=== PATIENT | female | born 1970 | race Caucasian/White ===

== ENCOUNTER 2019-01-28 17:14 | Observation (INO) ==
--- NOTE | 2019-01-28 17:41 | Emergency Department Note ---
Disposition Clinical Impression: Chronic anemia Chest pain Qualifiers: Chest pain type: unspecified Qualified Code(s): R07.9 - Chest pain, unspecified Disposition: Admitted As Inpatient Condition: Good Time of Disposition: 20:20 General Adult HPI - General Stated complaint: chest pain Time Seen by Provider: 01/28/19 17:19 Source: patient Limitations: no limitations Nursing Notes Reviewed: Yes Vital Signs Reviewed: Yes - History of Present Illness HPI Narrative: Female patient with a history of depression and PTSD [facility] complaining of chest pain. She is a smoker. Has a significant family history of cardiac disease with her daughter having heart attack at 28. She reports that she has been anxious for the past 4-5 months. Did stop her antidepressants around that time as well. Has been under an increased level of stress. Is currently on Avinza twice a day for anxiety. Does not wish to go back on her antidepressants. Stating that is when she woke up in pain attack. Subsequently developed some left-sided chest pain. Discredited as a weight on her chest. Denies any shortness of breath. Is tearful on exam. She does have some pain to light palpation of her left chest wall at this time. She denies history of hypertension or hyperlipidemia. Has not tried anything to make the pain better. Patient was recently admitted for a UTI at [facility]. She was discharged and did not finish her antibiotics and she ended up presenting back here for a UTI as well. She reports that she did finish her antibiotics this time and denies any hematuria or hematochezia or melena or dysuria. Pain Scale: 5 - Related Data Home Medications Medication Instructions Recorded Confirmed Alprazolam [Xanax] 2 mg PO BID PRN 01/08/19 01/29/19 Previous Rx's Medication Instructions Recorded Promethazine [Phenergan] 25 mg PO Q6HR PRN #10 tablet 01/09/19 Ferrous Sulfate 650 mg PO DAILY@0800 #30 tablet 01/29/19 Allergies Allergy/AdvReac Type Severity Reaction Status Date / Time meperidine [From Demerol] Allergy Mild Unconscious Verified 01/29/19 09:45 All systems ED: reviewed and negative except as stated. Review of Systems: As Per HPI Constitutional: Denies: fever, chills Cardiovascular: Reports: chest pain, palpitations. Denies: syncope Respiratory: Denies: cough, dyspnea Gastrointestinal: Denies: abdominal pain, nausea, vomiting, diarrhea Genitourinary: Denies: urgency, dysuria, frequency, hematuria Musculoskeletal: Denies: back pain Psychiatric: Reports: anxiety, depression Past Medical History - Past Medical History Attestation: Yes The following information was validated with the patient. 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 - Social History Smoking Status: Current every day smoker Smokeless Tobacco Status: No Alcohol use: Reports: none Drug use: Reports: none Physical Exam - General Limitations: no limitations General appearance: alert, in distress (Anxious and tearful) - Head Head exam: atraumatic, normocephalic, normal inspection - Eye Eye exam: Present: normal appearance, PERRL, EOMI - ENT ENT exam: normal exam, normal oropharynx, mucous membranes moist - Neck Neck exam: Present: normal inspection, full ROM, trachea midline - Chest Chest inspection: Present: symmetric chest wall rise, tenderness - Respiratory Respiratory exam: Present: normal lung sounds bilaterally. Absent: respiratory distress - Cardiovascular Cardiovascular exam: Present: regular rate, normal rhythm, normal heart sounds - Abdominal Exam Abdominal exam: Present: soft, Non-Tender. Absent: tenderness, distention, guarding, rebound, rigidity, organomegaly - Extremities Exam Extremities exam: Present: normal inspection, full ROM, normal capillary refill. Absent: tenderness, pedal edema, calf tenderness - Neurological Exam Neurological exam: Present: alert, oriented X3 - Psychiatric Psychiatric exam: Present: anxious - Skin Skin exam: Present: warm, dry, intact, normal color Course Course Narrative: Patient with left-sided chest pain. Does appear anxious. Has recently stopped her antidepressants. Is a smoker. With a significant cardiac history in her family. No signs of acute ischemia on EKG. Troponin is negative. Bedside shared decision-making reveals the patient is extremely anxious about her chest pain is concerned because of her extensive family history. She elects to be admitted to the hospital for further cardiac evaluation and serial troponins. I feel this is reasonable. We will admit patient at this time. Vital Signs Temperature 97.9 F 01/28/19 17:28 Pulse Rate 93 01/28/19 17:28 Respiratory Rate 18 01/28/19 17:28 Blood Pressure 140/89 01/28/19 17:28 O2 Sat by Pulse Oximetry 100 01/28/19 17:28 Temperature 97.9 F 01/28/19 17:28 Pulse Rate 93 01/28/19 17:28 Respiratory Rate 18 01/28/19 17:28 Blood Pressure 140/89 01/28/19 17:28 O2 Sat by Pulse Oximetry 100 01/28/19 17:28 Oxygen Delivery Oxygen Delivery Room Air Medical Decision Making - Medical Records Medical records reviewed: Yes I reviewed the patient's medical records. - Lab Data Lab results reviewed: Yes I reviewed the patient's lab results. Result diagrams: 01/28/19 17:27 01/29/19 04:47 Lab Results 01/28/19 01/28/19 01/28/19 Range/Units 17:27 17:27 17:27 WBC 10.9 (4.3-11.1) K/mcL RBC 4.42 (3.82-4.97) M/mcL Hgb 10.6 L (11.5-15.4) g/dL Hct 33.4 L (35.3-44.9) % MCV 75.6 L (83.0-100.0) fL MCH 24.0 L (28.0-33.3) pg MCHC 31.7 (31.6-35.5) g/dL RDW 16.9 H (11.5-14.5) % Plt Count 442 H (140-400) K/mcL MPV 10.0 (9.4-12.4) fL Immature Gran % 0.4 (0-4) % Seg Neutrophils % 75.0 % Lymphocytes % 18.2 % Monocytes % 4.9 % Eosinophils % 1.0 % Basophils % 0.5 % Neutrophils # 8.2 (1.6-8.9) K/mcL Lymphocytes # 2.0 (0.6-4.6) K/mcL Monocytes # 0.5 (0.0-1.3) K/mcL Eosinophils # 0.1 (0.0-0.6) K/mcL Basophils # 0.1 (0.0-0.2) K/mcL Sodium 134 L (136-145) mEq/L Potassium 3.8 (3.5-5.1) mEq/L Chloride 96 L (98-107) mEq/L Carbon Dioxide 29 (23-29) mEq/L BUN 4 L (6-20) mg/dL Creatinine 0.69 (0.60-1.20) mg/dL Est GFR ( Amer) > 60 (> 60) Est GFR (Non-Af Amer) > 60 (> 60) BUN/Creatinine Ratio 6 (6-26) Glucose 98 (70-105) mg/dL Calculated Osmolality 275 L (280-300) Calcium 10.2 (8.6-10.3) mg/dL Total Bilirubin 0.3 (0.3-1.0) mg/dL Direct Bilirubin 0.1 (0.0-0.2) mg/dL Indirect Bilirubin 0.2 (0.0-1.2) mg/dL AST 12 L (13-39) Units/L ALT 6 L (7-52) Units/L Alkaline Phosphatase 95 (34-104) Units/L Troponin I < 0.03 (< 0.04) ng/mL Serum Total Protein 7.3 (6.4-8.9) g/dL Albumin 4.3 (3.5-5.7) g/dL Globulin 3.0 (2.4-3.5) g/dL Albumin/Globulin Ratio 1.4 (1.1-2.2) Urine Color (Yellow) Urine Clarity (Clear) Urine pH (5.0-8.0) pH Units Ur Specific [place] (1.010-1.025) Urine Protein (Neg-Trace) mg/dL Urine Glucose (UA) (Normal) mg/dL Urine Ketones (Negative) mg/dL Urine Blood (Negative) Urine Nitrite (Negative) Urine Bilirubin (Negative) Urine Urobilinogen (Normal) mg/dL Ur Leukocyte Esterase (Negative) Ur Culture Indicated? (NO) 01/28/19 Range/Units 19:18 WBC (4.3-11.1) K/mcL RBC (3.82-4.97) M/mcL Hgb (11.5-15.4) g/dL Hct (35.3-44.9) % MCV (83.0-100.0) fL MCH (28.0-33.3) pg MCHC (31.6-35.5) g/dL RDW (11.5-14.5) % Plt Count (140-400) K/mcL MPV (9.4-12.4) fL Immature Gran % (0-4) % Seg Neutrophils % % Lymphocytes % % Monocytes % % Eosinophils % % Basophils % % Neutrophils # (1.6-8.9) K/mcL Lymphocytes # (0.6-4.6) K/mcL Monocytes # (0.0-1.3) K/mcL Eosinophils # (0.0-0.6) K/mcL Basophils # (0.0-0.2) K/mcL Sodium (136-145) mEq/L Potassium (3.5-5.1) mEq/L Chloride (98-107) mEq/L Carbon Dioxide (23-29) mEq/L BUN (6-20) mg/dL Creatinine (0.60-1.20) mg/dL Est GFR ( Amer) (> 60) Est GFR (Non-Af Amer) (> 60) BUN/Creatinine Ratio (6-26) Glucose (70-105) mg/dL Calculated Osmolality (280-300) Calcium (8.6-10.3) mg/dL Total Bilirubin (0.3-1.0) mg/dL Direct Bilirubin (0.0-0.2) mg/dL Indirect Bilirubin (0.0-1.2) mg/dL AST (13-39) Units/L ALT (7-52) Units/L Alkaline Phosphatase (34-104) Units/L Troponin I (< 0.04) ng/mL Serum Total Protein (6.4-8.9) g/dL Albumin (3.5-5.7) g/dL Globulin (2.4-3.5) g/dL Albumin/Globulin Ratio (1.1-2.2) Urine Color Yellow (Yellow) Urine Clarity Clear (Clear) Urine pH 6.5 (5.0-8.0) pH Units Ur Specific [place] 1.014 (1.010-1.025) Urine Protein Negative (Neg-Trace) mg/dL Urine Glucose (UA) Normal (Normal) mg/dL Urine Ketones Negative (Negative) mg/dL Urine Blood Negative (Negative) Urine Nitrite Negative (Negative) Urine Bilirubin Negative (Negative) Urine Urobilinogen Normal (Normal) mg/dL Ur Leukocyte Esterase Negative (Negative) Ur Culture Indicated? NO (NO) - Radiology Data Radiology results reviewed: Yes I reviewed the patient's radiology results. Chest X-Ray 01/28/19 17:42 IMPRESSION: No acute findings. D/ / 01/28/2019 18:28:32 Jaciel Joy MD / erick Interpreting Provider: Jaciel Joy MD - EKG Data EKG #1 EKG attestation: Yes I reviewed and interpreted this EKG. EKG results narrative: Normal sinus rhythm at a rate of 93. NV interval is 105. QRS duration is 81. QT is 354. QTC is 441. No signs of acute ischemia. Good R-wave progression. No signs of the BP to be reported got up. No significant change from previous EKG dated 01/07/2019. Attestation Statement - Attestation Attestation: I, Daniel Larios, examined this patient and my medical decision-making was reviewed with the RADIOLOGY PHYSICIAN/PA/Advanced Practice Nurse/Resident Physician. I agree with the documented findings, disposition and treatment plan as described except to the extent set forth below. 48-year-old female brought to emergency department for further evaluation of acute onset chest pain. Patient states has been intermittent throughout the day. Patient reports a significant family history of cardiac disease. Denies hypertension, hyperlipidemia, tobacco abuse. Patient states she woke up with the pain. Its on the left side of the chest and does not radiate. Initial troponin negative. EKG did not show evidence of STEMI. I reviewed the EKG with the resident and agree with the interpretation. Chest x-ray did not show evidence of acute infiltrate or pneumothorax. Patient will be admitted to the hospitalist for further care and evaluation Heart Score - Score EKG: Normal Age: 45-65 Risk Factors: 1-2 risk factors
[2019-01-28 17:55] LABS: Basophils # 0.1 K/mcL (0.0-0.2); Basophils % 0.5 %; Eosinophils # 0.1 K/mcL (0.0-0.6); Hematocrit 33.4 % (35.3-44.9); Hemoglobin 10.6 g/dL (11.5-15.4); Immature Granulocytes % 0.4 % (0-4); Lymphocytes % 18.2 %; Mean Corpuscular HGB Conc 31.7 g/dL (31.6-35.5); Mean Corpuscular Volume 75.6 fL (83.0-100.0); Monocytes # 0.5 K/mcL (0.0-1.3); Monocytes % 4.9 %; Neutrophils # 8.2 K/mcL (1.6-8.9); Platelet Count 442 K/mcL (140-400); Red Blood Count 4.42 M/mcL (3.82-4.97); Red Cell Distribution Width 16.9 % (11.5-14.5); White Blood Count 10.9 K/mcL (4.3-11.1)
[2019-01-28 18:12] LABS: Albumin 4.3 g/dL (3.5-5.7); Albumin/Globulin Ratio 1.4 (1.1-2.2); Bilirubin,Direct 0.1 mg/dL (0.0-0.2); Bilirubin,Indirect 0.2 mg/dL (0.0-1.2); Bilirubin,Total 0.3 mg/dL (0.3-1.0); Total Protein 7.3 g/dL (6.4-8.9)
[2019-01-28 18:14] LABS: BUN/Creatinine Ratio 6 (6-26); Blood Urea Nitrogen 4 mg/dL (6-20); Calcium 10.2 mg/dL (8.6-10.3); Carbon Dioxide 29 mEq/L (23-29); Chloride 96 mEq/L (98-107); Glucose 98 mg/dL (70-105); Osmolality,Calculated 275 (280-300); Potassium 3.8 mEq/L (3.5-5.1); Sodium 134 mEq/L (136-145); Troponin I < 0.03 ng/mL (< 0.04); eGFR For African Americans > 60 (> 60); eGFR For Non-African Americans > 60 (> 60)
[2019-01-28 20:11] LABS: Bilirubin,Urine Negative (Negative); Blood,Urine Negative (Negative); Clarity,Urine Clear (Clear); Color,Urine Yellow (Yellow); Glucose,Urine (UA) Normal (Normal); Ketones,Urine Negative (Negative); Leukocyte Esterase,Urine Negative (Negative); Nitrite,Urine Negative (Negative); PH,Urine 6.5 pH Units (5.0-8.0); Protein,Urine Negative (Neg-Trace); Specific Gravity,Urine 1.014 (1.010-1.025); Urobilinogen,Urine Normal (Normal)
[2019-01-28] MEDS ORDERED: Aspirin 325 MG TABLET PO ONE (20:17)
[2019-01-28] MEDS: Nitroglycerin 0.4 MG TAB.SUBL SL SCH ×2 (20:31→20:56)
[2019-01-28] MEDS ORDERED: 0.9 % Sodium Chloride 1,000 ML IVC SCH (21:00)
--- NOTE | 2019-01-28 21:22 | Internal Med History&Physical ---
Date of Encounter: 01/28/19 Time of Encounter: 21:21 Internal Medicine - H&P: HPI Chief complaint: Chest pain Admitted From: Home Plans for Post Hospital Care: Home History of present illness: Thalia Pugh is a 48-year-old woman with a history of anxiety disorder/panic attacks and a family history remarkable for myocardial infarction in her daughter at the age of 28 and her father at the age of 44 that was fatal presenting to the ER complaining of chest pain/pressure/tightness that started this morning and progressively worsened accompanied by mild dyspnea. While she admits she has been under stress for her daughters current medical conditions, she feels that the pain today is different from her usual panic attack episodes. In the ER she was clinically and hemodynamically stable. EKG is reviewed by me showed normal sinus rhythm. Serum troponin was negative. She received 1 sub lingual nitroglycerin which brought on modest chest pain relief. She is admitted for further observation. Vitals: Reviewed General: Well-developed white woman lying comfortably in bed in no acute di stress. Skin: Warm and supple. HEENT: Moist mucous membranes. No conjunctivae pallor. Neck: No lymphadenopathy. No JVD. No carotid bruits. No palpable thyroid. Chest: Normal thoracic expansion. Normal breath sounds. Clear to auscultation. Heart: Normal S1 & S2; rhythmic. No rubs or murmurs. Abdomen: Non-distended, soft and non-tender to palpation. No peritoneal reaction. Extremities: No clubbing, cyanosis or edema. No calf tenderness. Normal distal pulses. Neurological: Awake, alert and oriented to person, place and time. No focal deficits. Psych: Affect appropriate. Assessment/Plan 1. Chest pain: Seems to be more related to anxiety and panic however given her remarkable family history of alma cardiac disease and 1pack+ daily smoking, she warrants observation. Will have her on telemetry and repeat another troponin. Will keep her NPO past midnight for stress test. Pain relief as needed. 2. Electrolyte imbalance: Mild hyponatremia/hypochloremia is noted. Will give IV saline and recheck values. 3. Anemia: Microcytic and hypochromic. Suspect secondary to menstrual blood loss given her report of occasional heavy flow. Will check iron studies and start supplementation as needed. 4. Anxiety disorder: Continue alprazolam 2mg BID. Past Med Surg Social Fam HX - Past Medical History Medical history: non-contributory, arthritis Psychiatric history: anxiety, depression, panic disorder, PTSD - Past Surgical History Surgical History: orthopedic, other Additional surgical history: Rt shoulder sx - Social History Smoking Status: Current every day smoker Smokeless Tobacco Status: No Alcohol use: none Drug use: none - Family History Father Hx Family Cardiac Disorders: Yes ([place]) Daughter Hx Family Cardiac Disorders: Yes ([place]) Hx Family Endocrine Disorder: Yes ([place]) Mother Hx Family Cardiac Disorders: Yes ([place]) Internal Medicine - H&P: Meds Alprazolam [Xanax] 2 mg PO BID 01/08/19 [History] Promethazine [Phenergan] 25 mg PO Q6HR PRN #10 tablet 01/09/19 [Rx] Allergy/AdvReac Type Severity Reaction Status Date / Time meperidine [From Demerol] Allergy Mild Unconscious Verified 01/07/19 22:14 All Systems PM: A 10-system review of systems was performed and is negative for pertinent findings except as documented above in the HPI. - Constitutional Vitals: Temp Pulse Resp BP Pulse Ox 97.9 F 86 16 112/76 100 01/28/19 17:28 01/28/19 20:33 01/28/19 20:33 01/28/19 20:33 01/28/19 20:33 Exam: . Internal Med - H&P Results - Labs CBC & Chem 7: 01/28/19 17:27 01/28/19 17:27 Labs: Short CBC 01/28/19 Range/Units 17:27 WBC 10.9 (4.3-11.1) K/mcL Hgb 10.6 L (11.5-15.4) g/dL Hct 33.4 L (35.3-44.9) % Plt Count 442 H (140-400) K/mcL Neutrophils # 8.2 (1.6-8.9) K/mcL BMP 01/28/19 17:27 Sodium 134 L Potassium 3.8 Chloride 96 L Carbon Dioxide 29 BUN 4 L Creatinine 0.69 Glucose 98 Calcium 10.2 Cardiac Enzymes 01/28/19 Range/Units 17:27 Troponin I < 0.03 (< 0.04) ng/mL Liver Function 01/28/19 Range/Units 17:27 Total Bilirubin 0.3 (0.3-1.0) mg/dL Direct Bilirubin 0.1 (0.0-0.2) mg/dL AST 12 L (13-39) Units/L ALT 6 L (7-52) Units/L Alkaline Phosphatase 95 (34-104) Units/L Albumin 4.3 (3.5-5.7) g/dL Urine 01/28/19 Range/Units 19:18 Urine Color Yellow (Yellow) Urine Clarity Clear (Clear) Urine pH 6.5 (5.0-8.0) pH Units Ur Specific [place] 1.014 (1.010-1.025) Urine Protein Negative (Neg-Trace) mg/dL Urine Glucose (UA) Normal (Normal) mg/dL - Impressions ITS Impressions Chest X-Ray 01/28/19 17:42 IMPRESSION: No acute findings. D/ / 01/28/2019 18:28:32 Jaciel Joy MD / erick Interpreting Provider: Jaciel Joy MD - Time Spent With Patient Total time spent is greater than 50% in coordination of care (as documented) at patient's floor/unit and/or counseling patient: Greater than 35 minutes
[2019-01-28] MEDS: Acetaminophen 325 MG TABLET PO PRN (22:06)
[2019-01-28] MEDS: ALPRAZolam 1 MG TABLET PO SCH (22:07)
[2019-01-29 05:52] LABS: Troponin I < 0.03 ng/mL (< 0.04)
[2019-01-29 05:54] LABS: % Iron Saturation 8 % (15-50); BUN/Creatinine Ratio 7 (6-26); Blood Urea Nitrogen 5 mg/dL (6-20); Calcium 8.8 mg/dL (8.6-10.3); Carbon Dioxide 24 mEq/L (23-29); Chloride 103 mEq/L (98-107); Glucose 93 mg/dL (70-105); Iron 41 mcg/dL (50-170); Osmolality,Calculated 283 (280-300); Potassium 4.1 mEq/L (3.5-5.1); Sodium 138 mEq/L (136-145); Transferrin 358 mg/dL (203-362); eGFR For African Americans > 60 (> 60); eGFR For Non-African Americans > 60 (> 60)
[2019-01-29] MEDS ORDERED: Regadenoson 0.4 MG/5 ML SYRINGE IVP ONE (06:19)
[2019-01-29 06:29] LABS: Ferritin < 8 ng/mL (10-120)
[2019-01-29] MEDS: ALPRAZolam 1 MG TABLET PO SCH (09:20)
[2019-01-29 11:51] VITALS: BP 114/74
[2019-01-29] MEDS: Acetaminophen 325 MG TABLET PO PRN (12:12)
--- NOTE | 2019-01-29 12:43 | Discharge Summary ---
- NOTES TO OUTPATIENT PROVIDER Notes to Outpatient Provider: Presented with chest pain patient does admit she is very experiencing a lot of anxiety troponins were negative underwent stress test which was negative for any ischemia or infarct encouraged patient to resume antidepressants and follow-up with mental health as outpatient Orders not resulted at time of discharge: Pending orders 01/28/19 17:42 ECG 12 lead ECG [ECG] Stat 01/28/19 21:07 NM fabio perf SPECT multi [NM] Routine Date of Encounter: 01/29/19 Time of Encounter: 12:41 - Discharge Diagnosis (1) Chest pain Priority: Primary Status: Acute Qualifiers: Chest pain type: unspecified Qualified Code(s): R07.9 - Chest pain, unspecified (2) Chronic anemia Priority: Secondary Status: Acute Hospital course: Ms. Pugh is a 48 year old female past medical history of anxiety disorder/panic attacks family history for myocardial infarctions with her daughter having MN at 28 and father at 44. Presented to [facility] [place] ER with complaints of chest pain/pressure that had grown progressively worse throughout the day with some mild dyspnea. Patient states that she has been under a lot of stress due to her daughter's current medical conditions. Also admits she has not been taking her antidepressants for her panic attacks however she feels that the pain she is experiencing is different from her panic attacks. EKG with no ischemic changes troponins negative 3 she underwent Navid stress test which was negative for any ischemia or infarct. Patient does appear to have some anemia which appears to be chronic from heavy menses will place patient on iron supplements Patient was advised to follow-up primary care provider currently patient is chest pain-free and is hemodynamically stable and ready for discharge. - Time Spent with Patient Total time spent providing and/or coordinating discharge services: - Discharge Medications Prescriptions: New Ferrous Sulfate 650 mg PO DAILY@0800 #30 tablet No Action Alprazolam [Xanax] 2 mg PO BID PRN PRN Reason: Anxiety Promethazine [Phenergan] 25 mg PO Q6HR PRN #10 tablet PRN Reason: nausea/vomiting Home Medications: Alprazolam [Xanax] 2 mg PO BID PRN 01/08/19 [History] Promethazine [Phenergan] 25 mg PO Q6HR PRN #10 tablet 01/09/19 [Rx] Ferrous Sulfate 650 mg PO DAILY@0800 #30 tablet 01/29/19 [Rx] Allergies/Adverse Reactions: Allergy/AdvReac Type Severity Reaction Status Date / Time meperidine [From Demerol] Allergy Mild Unconscious Verified 01/29/19 09:45 Date of admission: 01/28/19 21:02 Primary care physician: PCP NONE Discharging clinician: Halima Domingo Anticipated date of discharge: 01/29/19 - Constitutional Vitals: Temp Pulse Resp BP Pulse Ox 97.6 F 86 17 114/74 95 01/29/19 11:50 01/29/19 11:50 01/29/19 11:50 01/29/19 11:50 01/29/19 11:50 Exam: Skin: Free of rash and discoloration. Eyes: Sclera is white. There is no discharge from eyes. ENMT: Oral/pharyngeal mucosa is normal in appearance. There is no discharge from nose or ears. Respiratory: Normal breath sounds with no crackles and wheezes bilaterally. CV: Heart is regular with no gallop or murmur. GI: Abdomen is flat and soft with no palpable mass or visceromegaly. : There is no tenderness in patient's flanks bilaterally. Neuro exam: He has good strength in upper and lower extremities. He has normal eye movements. Psychiatric: He has normal affect. His thought process is appropriate to the situation. - Patient Status Disposition: Home, Self-Care Condition: Good Functional capacity at discharge: independent ambulation Overall status at discharge: patient is back to baseline - Discharge Instructions Instructions: Chest Pain (DC) Follow Up With: NONE,PCP [Primary Care Provider] - Forms: ED Satisfaction Letter - Diet and Activity Activity: increase activity as tolerated Diet: advance to your usual diet
== END 2019-01-29 13:48 | disposition home or self-care (01) ==
LOC: EMEROOARM 17:14 → 3BNU 17:14
PROVIDERS: ADMIT Internal Medicine; ATTEND Internal Medicine